=== PATIENT | male | born 1980 | race Caucasian/White ===

== ENCOUNTER → 2020-08-30 | Outpatient (CLI) | payer OTHER ==
[~2020-08-30] MED LIST: IBUPROFEN 600600 M1 PO; NORCO 5-325 TA1 EACH PO
== END ==
LOC: SJCVCIMAG 09:35
PROVIDERS: ATTEND Internal Medicine
DX: I49.1 Atrial premature depolarization (principal); R00.2 Palpitations; R07.89 Other chest pain; I10 Essential (primary) hypertension